=== PATIENT | male | born 2000 | race Two or more races ===

== ENCOUNTER → 2024-04-23 | Outpatient (CLI) | payer BC, SELFPAY ==
--- NOTE | 2024-04-23 10:21 | XR_ITS ---
Examination: CT right ankle, without contrast. 2-D sagittal reconstructions. 2-D coronal reconstructions. 3-D reconstructions. Date and time of exam:April 23, 2024 1043 hours INDICATIONS: Injury to the ankle September 2023 with persistent pain and swelling CTDI: vol (mGy):4.7 DLP: (mGycm): 122 Technique: Multiple 1.25 mm axial sections of the right ankle without intravenous contrast have been obtained. 2-D sagittal and coronal reconstructions have been obtained. 3-D reconstructions have been obtained. Low dose protocols were performed. One or more of the following dose reduction techniques were used; automated exposure control, adjustment of the mA and/or KV according to patient size, use of iterative reconstruction technique. Findings: Distal tibia and distal fibula intact No ankle dislocation Talus and calcaneus cuboid navicular and cuneiforms intact No Lisfranc tarsometatarsal dislocation 3 mm old bone density anterior to the talus IMPRESSION: No acute ankle fracture or ankle dislocation Consider MRI ankle without contrast follow-up
== END | disposition home or self-care (01) ==
PROVIDERS: PCP Nurse Practitioner Family; Referring Provider Nurse Practitioner Family; Visit Provider Nurse Practitioner Family
DX: M25.571 Pain in right ankle and joints of right foot (principal); S99.911S Unspecified injury of right ankle, sequela; X58.XXXS Exposure to other specified factors, sequela
CPT/HCPCS: 73700